=== PATIENT | female | born 1990 | race Caucasian/White ===

== ENCOUNTER 2022-01-11 12:20 | Emergency (ER) | payer BC, SELFPAY ==
--- NOTE | ~2022-01-11 | US_ITS ---
CORRECTED REPORT ORDER CHANGED 01/12/22 PK EXAMINATION: US pelvic complete WITH TRANSVAGINAL DATE: 01/11/2022 15:21 INDICATION: Abnormal vaginal bleeding. TECHNIQUE: Multiple transabdominal and transvaginal sonographic images of the pelvis were obtained. COMPARISON: None. FINDINGS: TRANSABDOMINAL ULTRASOUND: The uterus measures 11.1 x 6.8 x 6.5 cm. There is no free fluid in the pelvis. TRANSVAGINAL ULTRASOUND: The endometrial complex measures 16 mm in thickness. The right ovary measures 4.0 x 2.1 x 1.7 cm. There is vascular flow in right ovary. There is a 7.2 x 4.7 x 4.7 cm cyst in left adnexa. IMPRESSION: 1. 7.2 cm cyst in left adnexa, likely benign. Pelvis ultrasound is recommended in one year. Reviewed, dictated and finalized at location [facility]
[2022-01-11 12:21] VITALS: BP 176/88; PULSE 111; RESP 18; TEMP 37; O2SAT 99
--- NOTE | 2022-01-11 13:19 | ED.FEMALEGU ---
HPI - Female Genitourinary General Chief complaint: Vaginal Bleeding Stated complaint: BLEEDING THAT WONT STOP Time Seen by Provider: 01/11/22 13:02 History of Present Illness HPI Narrative: Patient is a 31 year old female with a history of MTHFR, cervical polyps and tubal ligation who presents for 2 months of intermittent but heavy, irregular vaginal bleeding, progressing in severity over the past few days. She states she has soaked through a super tampon and pad every hour, and that she has passed quarter-sized clots. Today, she felt lightheaded and dizzy which prompted her ED visit. Reports intermittent, lower abdominal/pelvic pain that she likens to menstrual cramps over the past month. She has not taken any medication for her pain. She was seen at a different ED for the same, was told she was anemic and was started on an iron supplement, which she has been taking. Reports regular menstrual cycles prior to this episode of bleeding. No dysuria, hematuria, fevers, chills. Has OB follow up on January 26 for this issue. Related Data Allergies Allergy/AdvReac Type Severity Reaction Status Date / Time No Known Allergies Allergy Verified 01/11/22 13:12 Review of Systems Review of Systems: All systems reviewed & are unremarkable except as noted in HPI and below Exam Const: General: no acute distress Nutritional Appearance: obese Orientation/consciousness: patient oriented x3 Resp: Effort & Inspection: normal respiratory effort and not labored Auscultation: clear to auscultation bilaterally Cardio: Rate: tachycardic Rhythm: regular rhythm Heart sounds: no murmurs GI: GI Palp: Yes Soft to palpation, No Tenderness to palpation present (GI), No Guarding due to palpation present (GI) and No Rebound tenderness present : General: Yes no CVA tenderness External Female Exam: normal external appearance Speculum Exam - Vagina: vaginal bleeding Speculum Exam - Cervix: Other cervical findings present (difficult to visualize cervix secondary to body habitus) Skin: General skin exam: normal color Rashes: no rashes Neuro: General: patient oriented x3 and moves all extremities Speech: normal speech Extrem: General: normal to inspection and no edema Psych: Mental Status: mental status grossly normal Affect: Anxious affect present Thought content: Yes Normal thought content present Course Consultations Consultation #1: Dr. Tom on for cafeteria monitor recommends a dose of IV txa, provera 10 mg daily 10 days until OB follow up. Date: 01/11/22 Time: 15:10 Vital Signs Vital signs: Vital Signs Temperature 98.6 F 01/11/22 12:21 Pulse Rate 111 H 01/11/22 12:21 Respiratory Rate 18 01/11/22 12:21 Blood Pressure 176/88 H 01/11/22 12:21 Pulse Oximetry 99 01/11/22 12:21 Temperature 98.6 F 01/11/22 12:21 Pulse Rate 96 01/11/22 15:51 Respiratory Rate 17 01/11/22 15:51 Blood Pressure 137/83 01/11/22 15:51 Pulse Oximetry 99 01/11/22 15:51 MDM - Female Genitourinary MDM Narrative Medical decision making narrative: 31 year old female here for 1.5 months of heavy vaginal bleeding, progressing to passing clots today with lightheadedness and near syncope. Patient is tachycardic and hypertensive in the ED, likely due to anxiety. Exam limited due to body habitus, however copius amount of blood noted in vaginal vault. H/h 9.6/32.3, normal coag studies. Pelvic US pending. Spoke with Ob, who recommended TXA IV and d/c with provera until Ob follow up. Pelvis US shows a cyst, but nothing structural to explain her heavy bleeding. Patient amenable to starting provera for the bleeding. Strict return precautions discussed, including coming back to the ED for evaluation if she becomes lightheaded again or her bleeding does not ease up. Encouraged patient to continue her iron supplements. . Lab Data Result diagrams: 01/11/22 13:28 01/11/22 13:28 Labs: Lab Results 01/11/22 01/11/22 01/11/22 R
[2022-01-11 13:37] LABS: Basophils Absolute Auto 0.1 K/mm3 (0.0-0.1); Eosinophils Absolute Auto 0.2 K/mm3 (0-0.3); Eosinophils Percent Auto 2.4 % (0-4.4); Hematocrit 32.3 % (37.0-47.0); Hemoglobin 9.6 g/dL (12.0-15.0); Immature Granulocyte Absolute 0.04 K/mm3 (0.00-0.031); Immature Granulocyte Percent A 0.6 % (0-0.5); Lymphocytes Percent Auto 31.5 % (18.3-44.2); Mean Corpuscular HGB Conc 29.7 g/dl (32-36); Mean Corpuscular Hemoglobin 22.7 pg (26-34); Mean Corpuscular Volume 76.5 fl (80-100); Mean Platelet Volume 11.5 fl (7.4-10.4); Monocytes Absolute Auto 0.4 K/mm3 (0.1-0.6); Monocytes Percent Auto 6.2 % (2.6-8.5); Neutrophils Absolute Auto 4.1 K/mm3 (1.3-6.7); Neutrophils Percent Auto 58.3 % (45.5-73.1); Platelet Count Result 292 k/mm3 (150-375); Red Blood Count 4.22 M/mm3 (4.2-5.4); Red Cell Distribution Width 16.7 % (11.5-14.5)
[2022-01-11 13:42] LABS: Bilirubin Urine 3+ (Negative); Blood Urine 3+ (Negative); Color Urine Red (Yellow); Glucose Urine UA Trace mg/dL (Negative); Ketones Urine 1+ mg/dL (Negative); Leukocyte Esterase Ur 3+ LEU/UL (Negative); Nitrate Urine Negative (Negative); Protein Urine 3+ mg/dL (Negative); Specific Grav Ur 1.015 (1.001-1.035); pH Urine >=9.0 (5.0-9.0)
[2022-01-11 13:46] LABS: Alanine Aminotransferase 37 U/L (4-35); Albumin Level 4.3 g/dL (3.5-5.1); Alkaline Phosphatase 85 U/L (38-126); Anion Gap 10 mmol/L (8-16); Aspartate Amino Transferase 32 U/L (14-36); Bilirubin,Total 0.3 mg/dL (0.2-1.3); Blood Urea Nitrogen 9 mg/dL (7-17); Calcium 8.8 mg/dL (8.4-10.2); Carbon Dioxide 22 mmol/L (22-30); Chloride 106 mmol/L (98-107); Estimated CRCL calculation 181 ml/min; Estimated Glomerular Filt Rate > 60; Glucose 102 mg/dL (65-110); Potassium 3.9 mmol/L (3.4-5.0); Sodium 138 mmol/L (137-145)
[2022-01-11 13:48] LABS: INR 1.1; Partial Thromboplastin Time 28.5 SECONDS (22.3-36.8); Prothrombin Time 13.4 Seconds (11.1-14.7)
[2022-01-11 13:54] LABS: Add Urine Microscopic? YES; Appearance Urine Sl Cloudy (Clear); RBC Urine >75 /hpf (0-2)
[2022-01-11 13:55] LABS: Squamous Epithelial Cell Urine Moderate /hpf (Few)
[2022-01-11 14:15] LABS: Anisocytosis 1+ (NORMAL); Hypochromasia 1+ (NORMAL); Platelet Estimate Adequate (Adequate)
[2022-01-11] MEDS: TRANEXAMIC ACID 1,000 MG/10 ML AMPUL 1000 MG IV PUSH (15:25)
[2022-01-11 15:51] VITALS: BP 137/83; PULSE 96; RESP 17; O2SAT 99
== END 2022-01-11 15:53 | disposition home or self-care (01) ==
PROVIDERS: Physician Assistant; Emergency Provider Family Medicine
DX: N93.9 Abnormal uterine and vaginal bleeding, unspecified (principal)
CPT/HCPCS: 36415; 76830; 76856; 80053; 81001; 81025; 85025; 85610; 85730; 86850; 86900; 86901; 87077; 87086; 87088; 96374; 99284

== ENCOUNTER 2024-02-13 03:42 | Emergency (ER) | payer BC, OTHER, SELFPAY ==
--- NOTE | ~2024-02-13 | CT_ITS ---
Non-contrast CT scan of the Abdomen and Pelvis Clinical indication: Left flank pain Technique: 2.5 mm axial scans were obtained through the abdomen and pelvis without intravenous or or al contrast. Dose reduction technique was used on this scan by utilizing automated exposure control a nd iterative reconstruction technique. The dose-length product (DLP) was 1729.06 mGy-cm. Findings: Images through the lung bases reveal no abnormalities. Punctate bilateral nonobstructing renal stones are present. No ureteral stone or hydronephrosis. The liver, pancreas, gallbladder, and right adrenal gland appear normal. 1.3 cm low-density left adre nal nodule is compatible with adenoma. Spleen is enlarged, measuring 16.5 cm in length. There is no a ortic aneurysm. There is no evidence of bowel obstruction. Images through the pelvis were performed. There is no evidence of ascites or lymphadenopathy. There i s an 8.6 x 7.2 cm cystic mass superior to the uterus is slightly right of midline, likely arising fro m the left ovary. Urinary bladder unremarkable. Impression: 8.6 x 7.2 cm cystic mass superior to the uterus and slightly right of midline, likely arising from th e left ovary. Torsion cannot be excluded. Consider pelvic ultrasound to attempt further assess for to rsion. Splenomegaly, of uncertain etiology. Punctate bilateral nonobstructing renal stones. No ureteral stone or hydronephrosis. Reviewed, dictated and finalized at location . Impression: 8.6 x 7.2 cm cystic mass superior to the uterus and slightly right of midline, likely arising from the left ovary. Torsion cannot be excluded. Consider pelvic ultrasound to attempt further assess for torsion. Splenomegaly, of uncertain etiology. Punctate bilateral nonobstructing renal stones. No ureteral stone or hydronephr osis.
--- NOTE | ~2024-02-13 | US_ITS ---
Pelvic ultrasound. Clinical History: Pelvic pain, torsion Technique: Realtime transabdominal scanning of the pelvis was performed. Patient refused transvaginal imaging. Color flow Doppler and Doppler spectral analysis were performed. Findings: The uterus is anteverted. The endometrial stripe is not well delineated. No focal mass is identified. The right ovary measures 4.9 x 3.5 x 4.5 cm. No significant right ovarian or adnexal mass is seen. There is a 7.9 x 7.1 x 6.4 cm probable simple cyst occupying the bulk of the left ovary. Probable vascular flow present in the periphery of both ovaries. There is no evidence of free fluid in the cul de sac. Impression: 7.9 cm left ovarian cyst. No definite evidence for torsion. Imaging is somewhat suboptimal as patient refused transvaginal imag ing. Reviewed, dictated and finalized at [facility]. Impression: 7.9 cm left ovarian cyst. No definite evidence for torsion. Imaging is somewhat suboptimal as patient ref used transvaginal imaging.
[2024-02-13 03:46] VITALS: BP 140/92; PULSE 77; RESP 18; TEMP 36.3; O2SAT 100
--- NOTE | 2024-02-13 03:58 | ED.GENADULT ---
HPI - General Adult General Chief complaint: Abdominal Pain <Juan Manuel Sparrow MD - Last Filed: 02/13/24 07:06> Stated complaint: flank pain, nausea <Juan Manuel Sparrow MD - Last Filed: 02/13/24 07:06> Time Seen by Provider: 02/13/24 03:57 <Juan Manuel Sparrow MD - Last Filed: 02/13/24 07:06> History of Present Illness HPI narrative: this is a 33-year-old female presenting to the ED by back pain. Earlier this afternoon she felt a sharp burning pain in her left back that radiates into her left groin. Associated with some nausea and vomiting. She took ibuprofen earlier with some relief but the pain keeps coming back. Patient denies fevers chills chest pain difficulty breathing or abdominal pain. No vaginal discharge or irritation. Patient is currently on her period. Patient states she has a high pain tolerance. <Juan Manuel Sparrow MD - Last Filed: 02/13/24 07:06> Related Data Home medications: Home Medications Medication Instructions Recorded Confirmed multivitamin 1 tablet PO DAILY 01/24/22 01/24/22 <Juan Manuel Sparrow MD - Last Filed: 02/13/24 07:06> Allergies/adverse reactions: Allergies Allergy/AdvReac Type Severity Reaction Status Date / Time No Known Allergies Allergy Verified 01/24/22 09:06 <Juan Manuel Sparrow MD - Last Filed: 02/13/24 07:06> [facility] Past Medical History Medical History: Medical History Anxiety Obesity <Juan Manuel Sparrow MD - Last Filed: 02/13/24 07:06> Surgical History Surgical History: Surgical History Delivery by section c/s x 3 H/O tubal ligation History of tonsillectomy <Juan Manuel Sparrow MD - Last Filed: 02/13/24 07:06> Family History Family History: Family History Other Breast cancer maternal aunt Mother Heart disease Hypertension <Juan Manuel Sparrow MD - Last Filed: 02/13/24 07:06> Social History Social History: Social History Smoking status: Never smoker Alcohol intake: current Alcohol use details: 1 x monthly Substance use: never Substance use type: does not use Living arrangements: other Additional living arrangements comments: Occupation/Education: other Additional occupation/education comments: homemaker Gender identity (if verbalized by the patient): Female Sexual Orientation (if Verbalized by the Patient): Straight or Heterosexual <Juan Manuel Sparrow MD - Last Filed: 02/13/24 07:06> Exam Narrative: APPEARANCE: No apparent distress. Morbidly obese Head: atraumatic. EYES: EOMI, NOSE: Atraumatic NECK: Trachea midline RESPIRATORY: No increased rate of breathing CARDIOVASCULAR: RRR, ABDOMINAL: soft nontender but exam is severely limited by body habitus, no CVA tenderness MUSCULOSKELETAl: No obvious deformities NEURO: Alert. Moving 4/4 extremities, ambulating without difficulty SKIN:: Warm, dry. Normal color PSYCHIATRIC: Normal affect <Juan Manuel Sparrow MD - Last Filed: 02/13/24 07:06> Course Course Emergency Course: CT and ultrasound with large ovarian cyst. No ovarian torsion. Discussed with on-call planer operator / grader in patient may be referred for outpatient follow-up. <Saul Moon MD - Last Filed: 02/13/24 08:46> Vital Signs Vital signs: Vital Signs Temperature 97.4 F L 02/13/24 03:46 Pulse Rate 77 02/13/24 03:46 Respiratory Rate 18 02/13/24 03:46 Blood Pressure 140/92 H 02/13/24 03:46 Pulse Oximetry 100 02/13/24 03:46 Oxygen Delivery Room Air 02/13/24 03:46 Temperature 97.4 F L 02/13/24 03:46 Pulse Rate 80 02/13/24 06:35 Respiratory Rate 16 02/13/24 06:35 Blood Pressure 149/97 H 02/13/24 06:35 Pulse Oximetry 100 02/13/24 06:35 Oxygen Delivery Room Air 02/13/24 03:46 <Juan Manuel Molina
[2024-02-13] MEDS: KETOROLAC 15 MG/ML VIAL (*BKC) IV PUSH (04:12)
[2024-02-13] MEDS: methocarbamoL 750 MG TABLET 1500 MG PO (04:13)
[2024-02-13] MEDS: ACETAMINOPHEN 500 MG TABLET 1000 MG PO (04:13)
[2024-02-13 04:17] VITALS: BP 133/88; PULSE 78; RESP 16; O2SAT 99
[2024-02-13 04:19] LABS: Basophils Absolute Auto 0.1 K/mm3 (0.0-0.1); Basophils Percent Auto 0.9 % (0.2-1.2); Eosinophils Absolute Auto 0.3 K/mm3 (0-0.3); Eosinophils Percent Auto 4.7 % (0-4.4); Hemoglobin 10.5 g/dL (12.0-15.0); Immature Granulocyte Absolute 0.02 K/mm3 (0.00-0.031); Immature Granulocyte Percent A 0.4 % (0-0.5); Immature Platelet Fraction Pct 7.5 % (0.9-11.2); Lymphocytes Absolute Auto 2.12 K/mm3 (0.9-3.2); Lymphocytes Percent Auto 38.1 % (18.3-44.2); Mean Corpuscular HGB Conc 29.2 g/dl (32-36); Mean Corpuscular Volume 72.1 fl (80-100); Mean Platelet Volume 11.6 fl (7.4-10.4); Monocytes Absolute Auto 0.4 K/mm3 (0.1-0.6); Monocytes Percent Auto 7.6 % (2.6-8.5); Neutrophils Absolute Auto 2.7 K/mm3 (1.3-6.7); Neutrophils Percent Auto 48.3 % (45.5-73.1); Platelet Count Result 197 k/mm3 (150-375); Red Blood Count 4.99 M/mm3 (4.2-5.4); Red Cell Distribution Width 18.9 % (11.5-14.5); White Blood Count 5.6 K/mm3 (4.5-10.0)
[2024-02-13 04:28] LABS: Alanine Aminotransferase 39 U/L (6-35); Albumin Level 4.4 g/dL (3.5-5.1); Alkaline Phosphatase 73 U/L (38-126); Anion Gap 11 mmol/L (4-12); Aspartate Amino Transferase 29 U/L (14-36); Bilirubin,Total 0.4 mg/dL (0.2-1.3); Blood Urea Nitrogen 17 mg/dL (7-17); Calcium 9.3 mg/dL (8.4-10.2); Carbon Dioxide 20 mmol/L (22-30); Chloride 112 mmol/L (98-107); Estimated CRCL calculation 158 ml/min; Estimated Glomerular Filt Rate > 60; Glucose 121 mg/dL (65-110); Lipase 108 U/L (23-300); Potassium 4.3 mmol/L (3.4-5.0); Sodium 143 mmol/L (137-145)
[2024-02-13 04:29] LABS: Lactic Acid Reflex 1.7 mmol/L (0.7-2.0)
[2024-02-13 04:42] LABS: Platelet Estimate Adequate (Adequate); Poikilocytosis 1+
[2024-02-13 04:43] LABS: Anisocytosis 1+; Ovalocytes 1+; Schistocytes None Seen
[2024-02-13 05:20] LABS: Bacteria Urine None Seen /hpf; Non Pathogenic Casts 0-2; RBC Urine >100 /hpf (0-2); Squamous Epithelial Cell Urine Few /hpf (Few)
[2024-02-13 05:29] LABS: Appearance Urine Cloudy (Clear); Bilirubin Urine Negative (Negative); Blood Urine 3+ (Negative); Color Urine Orange (Yellow); Glucose Urine UA Negative (Negative); Ketones Urine Negative (Negative); Leukocyte Esterase Ur 1+ LEU/UL (Negative); Nitrate Urine Negative (Negative); Protein Urine 2+ mg/dL (Negative); Specific Grav Ur 1.026 (1.001-1.035); pH Urine 5.5 (5.0-9.0)
[2024-02-13 05:30] LABS: Add Urine Microscopic? YES
[2024-02-13 06:35] VITALS: BP 149/97; PULSE 80; RESP 16; O2SAT 100
[2024-02-13] MEDS: ONDANSETRON INJ 4 MG/2 ML VIAL IV PUSH (06:41)
[2024-02-13 07:32] VITALS: BP 138/80; PULSE 80; RESP 17; TEMP 36.6
[2024-02-13 08:30] VITALS: BP 140/78; PULSE 88; RESP 16; TEMP 36.7; O2SAT 100
== END 2024-02-13 08:54 | disposition home or self-care (01) ==
PROVIDERS: Emergency Provider Emergency Medicine
DX: N83.202 Unspecified ovarian cyst, left side (principal); E66.9 Obesity, unspecified; Z68.43 Body mass index [BMI] 50.0-59.9, adult; R16.1 Splenomegaly, not elsewhere classified; N20.0 Calculus of kidney
CPT/HCPCS: 36415; 74176; 76856; 80053; 81001; 81025; 83605; 83690; 85025; 85055; 86850; 86900; 86901; 87086; 87088; 96374; 96375; 99284; A9270; J1885; J2405